=== PATIENT | male | born 1965 | race Caucasian/White ===

== ENCOUNTER 2024-01-18 18:09 | Inpatient (IN) | payer OTHER, SELFPAY ==
[2024-01-18] VITALS (9 sets, daily range): BP systolic 140–169; BP diastolic 94–107; BMI 26.9; BMI 27.6
[2024-01-18 15:16] LABS: % Basophils 1.1 % (0-2); % Eosinophils 7.1 % (0-6); % Immature Granulocytes 0.2 % (0-0.5); % Lymphocytes 38.7 % (20.5-51.1); % Monocytes 7.7 % (1.7-9.3); % Neutrophils 45.2 % (42.2-75.2); Absolute Basophils 0.1 10^3/uL (0-0.2); Absolute Eosinophils 0.5 10^3/uL (0-0.7); Absolute Lymphocytes 2.5 10^3/uL (1.2-3.4); Absolute Monocytes 0.5 10^3/uL (0.1-0.6); Absolute Neutrophils 2.9 10^3/uL (1.4-6.5); Hematocrit 42.8 % (39.0-52.0); Hemoglobin 15.2 g/dL (13.0-18.0); Mean Corp Hgb Conc. 35.5 g/dL (33.0-37.0); Mean Corpuscular Hgb 31.9 pg (27.0-31.0); Mean Corpuscular Volume 89.9 fL (80.0-94.0); Mean Platelet Volume 9.1 fL (7.4-10.4); Nucleated Red Blood Cells % 0 % (-); Platelet Count 211 10^3/uL (130-400); Red Blood Cell Count 4.76 10^6/uL (4.70-6.10); Red Cell Dist. Width 11.9 % (11.5-14.5); White Blood Cell Count 6.5 10^3/uL (4.8-10.8)
[2024-01-18 15:32] LABS: ALT (SGPT) 30 U/L (0-50); AST (SGOT) 30 U/L (17-59); Albumin 4.6 g/dl (3.5-5.0); Alkaline Phosphatase 53 U/L (38-126); Blood Urea Nitrogen 13 mg/dl (9-20); Calcium 9.5 mg/dl (8.4-10.2); Carbon Dioxide 27 mmol/L (22-30); Chloride 102 mmol/L (98-107); Estimated Creatinine Clearance 97 ml/min; Glucose 87 mg/dl (70-99); Potassium 3.9 mmol/L (3.5-5.1); Sodium 137 mmol/L (135-145); Total Bilirubin 0.7 mg/dl (0.2-1.3); Total Protein 7.3 g/dl (6.3-8.2); eGFR > 60.00
[2024-01-18 15:45] LABS: Troponin I 0.139 ng/ml
--- NOTE | 2024-01-18 16:10 | ED.GENMED ---
History of Present Illness
General
Chief Complaint: Chest Pain
Source: patient
Time Seen by Provider: 01/18/24 15:52
Travel History
Have you had any contact with someone who has COVID-19?: No
Do you have any symptoms of coronavirus? Fever > 100 degrees, chills, cough, shortness of breath, sore throat, loss of taste or smell, muscle aches, or headache?: No
History of Present Illness
History of Present Illness:
58-year-old male with history of aortic stenosis presents complaining of chest pressure that he experiences when he exerts himself. He has been experiencing this chest pressure when he walks his 2 mile walk in the morning. When he stops walking
the pressure goes away. The pain does not radiate to the neck arms or back. He feels slightly short of breath. No nausea or diaphoresis. No leg swelling or calf pain. No other complaints at this time
Phy Exam
Physical Exam
Physical Exam:
General: Well-appearing male no acute respiratory distress
HEENT: Normocephalic atraumatic
Heart: Regular rate and rhythm mild holosystolic murmur
Lungs: Clear no wheeze or rales
Abdomen soft nontender nondistended no guarding or rebound
Extremities: No cyanosis
Scores
Heart Score for Chest Pain Patients
STEMI patient?: No
History: Moderately Suspicious
ECG: Normal
Age: >45 - <65 years
Risk Factors: No Risk Factors
Troponin: >1 - <3 x Normal Limit
Heart Score for Chest Pain Patients: 3
Heart Score Risk: 2.5% MACE over next 6 weeks
Course
Orders/Labs/Results
Orders:
Orders
01/18/24 15:01
Electrocardiogram (*1) Urgent
Reason for Study: Chest Pain
EKG- Treatment ONCE
01/18/24 15:09
Complete Blood Count/With Diff Urgent
Comprehensive Metabolic Panel Urgent
Troponin I Urgent
01/18/24 16:09
Aspirin 325 mg PO NOW STA
Abnormal Lab Results
01/18/24
15:09
MCH 31.9 H pg
(27.0-31.0)
Eosinophils % 7.1 H %
(0-6)
Troponin I 0.139 H* ng/ml
01/18/24 15:09
01/18/24 15:09
Vital Signs
Initial and Last Documented VS:
Initial Vital Signs
Temp Pulse Resp BP Pulse Ox
97.8 F 71 16 159/101 98
01/18/24 14:58 01/18/24 14:58 01/18/24 14:58 01/18/24 14:58 01/18/24 14:58
Last Documented Vital Signs
Temp Pulse Resp BP Pulse Ox
97.8 F 74 18 156/98 99
01/18/24 14:58 01/18/24 16:00 01/18/24 16:00 01/18/24 15:51 01/18/24 16:00
MDM/Problems Addressed
Differential Diagnosis Includes:
Exertional chest pressure now resolved. No pain currently. Consider ACS. Patient did travel to [place] 1 week ago however symptoms started before that week. Do not suspect PE as pain is gone currently and there is no pleuritic component. No
signs to suggest DVT otherwise. EKG shows sinus bradycardia but no ischemic changes. Troponin is elevated at 0.139. Concern for possible anginal symptoms. I reviewed prior hospital records which demonstrated an echocardiogram as done in
May of last year which showed moderate aortic stenosis.
Aspirin ordered. Discussed with cardiology
*Critical Care Note
Total Time (30-74mins, 75-104mins- exclusive of procedures): Not Applicable
Update Note
Update Note:
Patient remained chest pain-free here. Evaluated by cardiology. Will admit to hospital for further evaluation
ED Attending Note
-
Portions of this chart may have been created with voice recognition software.� Occasional wrong word or��sound alike� substitutions may have occurred due to the inherent limitations of voice recognition software.
Discharge Plan
Departure
Patient Disposition: Admit
Date of Disposition: 01/18/24
Time of Disposition: 17:48
Admit to: Telemetry
Presentation/result/management discussed w/ accepting MD/DO: Hospitalist
Discharge Problem:
Chest pain
Prescriptions:
No Action
pantoprazole [Protonix] 40 mg Tablet,Delayed Release (Dr/Ec)
40 mg PO DAILY
Referrals:
Gage Cartagena CRNP [Family Provider] -
Interventions
Interventions:
*Risk Screen - Suicide Last Done: 01/18/24 14:58
*Neglect/Abuse Screening Last Done: 01/18/24 14:58
ED- Fall Risk Assessment Last Done: 01/18/24 14:58
*ED COVID-19 Vaccine History Last Done: 01/18/24 14:58
Discharge Date and Time
Print Language: [id number]
[2024-01-18] MEDS: ASPIRIN 325 MG PO (16:28)
--- NOTE | 2024-01-18 16:45 | CON.CAR ---
Addendum entered and electronically signed by Anai Ocampo MD 01/18/24 17:53:
I saw and examined the patient.
The Aerial Advertiser's note was reviewed and I agree with the note.
Comment: Ervin is a 58-year-old gentleman with past medical history of GERD, hemochromatosis with periodic phlebotomies, most recent iron studies per patient have been within normal limits, moderate bicuspid aortic stenosis who reports a 2-month
history of exertional chest discomfort and shortness of breath found to have concern for possible NSTEMI. Initial troponin level is mildly elevated at 0.139. ECG with sinus bradycardia without signs of acute ischemia. No chest discomfort at rest.
Outpatient cardiology workup includes an echocardiogram from June 05, 2024 with LVEF of 60 to 65%, bicuspid aortic valve with restricted leaflet motion and moderate aortic stenosis with peak and mean transaortic gradients of 44 and 26 mmHg,
aortic valve area of 1.1 cm� and mild aortic regurgitation. ECG only treadmill stress test in May 2023 was negative for ischemia after patient walked for 12 minutes and achieved 13 METS and 101% of maximum predicted heart rate. He denies any
presyncopal or syncopal episodes. No lower extremity edema, orthopnea or PND. He works in medical supplies. Family history of his mom needing aortic valve replacement but without history of premature coronary artery disease.
Vital signs and lab work reviewed. On exam patient is a well-appearing gentleman in no acute distress, no JVD, normal carotid upstrokes, no carotid bruit, lungs are clear to auscultation bilaterally, normal S1, soft S2, mid-to-late peaking systolic
ejection murmur 3 out of 6, crescendo decrescendo. Abdomen is soft, nontender with active bowel sounds and warm extremities without significant edema.
Recommendations:
1. Monitor on telemetry through the weekend. Trend troponins and EKGs.
2. No evidence of decompensated heart failure on exam.
3. Treat for presumed NSTEMI with daily baby aspirin, IV heparin drip, high intensity statin.
4. Plan for left heart catheterization and repeat echocardiogram on Sunday.
Discussed with patient who is agreeable.
Anai Ocampo MD, [facility], [facility]
Original Note:
Consultation
Consultation Request
Date/Time Consultation Performed: 01/18/24
Requesting Provider: Umberto Mcmanus PA-C
Performing Provider: Marie Altamirano PA-C for Dr. Ocampo
Reason for Consultation: CP, elevated troponin
Medical History
-
Chief Complaint: CP
History of Present Illness:
Patient is a 58-year-old male with past medical history of moderate aortic stenosis secondary to bicuspid valve, hemochromatosis with periodic phlebotomy followed by ANSELMO Cooley, who presents to [facility] emergency room with complaints
of chest pressure. He reports he has been experiencing this with exercise over the last several months. He states he normally walks about 2 miles every morning, and has been experiencing the discomfort with this. It is mostly central in location,
however does radiate up to his throat and at times into his bilateral arms. He also reports shortness of breath associated with this. No presyncope/syncopal episodes. He has never had chest pressure with rest. He denies worsening over the last
several months, however is consistent. Denies recent medication changes. He is not on aspirin as an outpatient. His last blood work through hematology was the end of November 2023 and his iron level was fine and he did not require phlebotomy at that
time. Troponin 0.139. He is currently pain-free. EKG sinus bradycardia. Cardiology consulted for evaluation
PMH:
Moderate with bicuspid valve
Hemochromatosis with periodic phlebotomy
GERD
Past Medical History
Past Medical History: Other (in HPI)
Social History
Tobacco: Non-Smoker
Personal:
Living: With Family
Employment: Employed
Family History
Family History: Diabetes and Hypertension
Allergies / Home Medications
Allergy/AdvReac Type Severity Reaction Status Date / Time
Tetracyclines Allergy Swelling Verified 01/18/24 14:57
�Medication �Instructions �Recorded �Confirmed �Type
pantoprazole 40 mg tablet,delayed 40 mg PO DAILY 01/18/24 01/18/24 History
release (Protonix)
Review of Systems
-
History Source: Patient
All other systems: Negative unless noted
Physical Exam
Vital Signs
Temp Pulse Resp BP Pulse Ox
97.8 F 74 18 156/98 99
01/18/24 14:58 01/18/24 16:00 01/18/24 16:00 01/18/24 15:51 01/18/24 16:00
Lab Results
01/18/24 15:09
01/18/24 15:09
Troponin I 0.139 ng/ml H* 01/18/24 15:09
Physical Exam
General: No Apparent Distress and Comfortable
HEENT: Normocephalic, Anicteric and Moist Mucous Membranes
Respiratory: Clear and Non Labored Respirations
Cardiac: S1/S2, Regular Rhythm and Murmur
GI: Soft, Non Tender, Non Distended and Normal Bowel Sounds
Musculoskeletal: No Clubbing, No Cyanosis and Edema (trace of B/L LE)
Skin: Warm and Dry
Neuro: AO x 3
Impression / Plan
-
Primary .Net Architect: Dr. Wolf
Assessment:
Presentation with exertional chest discomfort
Elevated troponin
Moderate with bicuspid valve
Hemochromatosis with periodic phlebotomy
GERD
ECHO 06/05/23: EF 60 to 65%, mild concentric LVH, possible bicuspid aortic valve with restricted leaflet motion, moderate AAS, peak/mean gradients 44/26 mmHg, HARVINDER 1.1 cm�, mild AR
Treadmill stress test 05/2023: Negative for ischemia at 12 METS
Plan:
-Patient presents with exertional chest discomfort over the last several months. Troponin in ER elevated at 0.139. EKG sinus bradycardia without acute ischemic changes. He does have known moderate in addition.
-does not appear to be volume overloaded
-Will need cardiac catheterization, timing to be determined. procedure discussed with patient
-324 mg aspirin given in ER. Would start on 81 mg daily in a.m.
-Currently chest pain-free. Would consider for IV heparin
-Trend troponin to peak
-Check CVE
-Check echo to reevaluate
-Consider addition of beta-brandon, but avoid hypotension
-hgb stable at 15.2. known hemochromatosis requiring periodic phlebotomy
-d/w ER PA
Data Reviewed
-
EKG: Tracing Personally Visualized and interpreted
Medical Tests (Nuc Med, Echo etc): Report Reviewed by me
Labs: Labs Reviewed by me
Old Records: Reviewed
--- NOTE | 2024-01-18 18:14 | HPS.HSE ---
Family Physician
-
Family Physician: PRISCILA Herrera
Chief Complaint
-
exertional chest pain
History of Present Illness
58-year-old man with a history of bicuspid aortic valve has been lately having exertional chest pain over the last 2 months. Progressively worse so he presented to the ER.
Central in nature and radiates to the arms and the neck. Never had rest chest pain. He also started noticed some exertional shortness of breath. No syncope or lightheadedness. No palpitations.
He had an echocardiogram in 2022 and also a stress test in 2022. 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
Non-smoker. No history of diabetes or hyperlipidemia. Not on any cardiac medication. No premature cardiac events or in the family. Mother also had a bicuspid valve and was operated in her 80s.
History of hemochromatosis gets regular phlebotomies in the last ferritin levels within the normal limit a month ago.
Medical History
Past Medical History
Past Medical History: Reports Other ( Bicuspid aortic valve, hemochromatosis)
Past Surgical History: Reports None
Social History
Tobacco: Non-smoker
Drug: None
Living: With Family
Family History
Family History: Other ( mother had bicuspid valve)
Allergies / Home Medications
Allergies reflects when Allergies were last updated in [email or web address].
Home Medications with original date entered in [email or web address]
Allergy/Medication List:
Allergies
Allergy/AdvReac Type Severity Reaction Status Date / Time
Tetracyclines Allergy Swelling Verified 01/18/24 14:57
Home Medications
pantoprazole 40 mg tablet,delayed release (Protonix) 40 mg PO DAILY 01/18/24
Review of Systems
-
A 12 point ROS was completed and negative except as noted: Yes
Physical Exam
Vital Signs
Vital Signs
Temp Pulse Resp BP Pulse Ox
97.8 F 74 18 156/98 99
01/18/24 14:58 01/18/24 16:00 01/18/24 16:00 01/18/24 15:51 01/18/24 16:00
Physical Exam
General: No Apparent Distress
HEENT: Moist mucous membranes
Respiratory: Clear
Cardiac: S1/S2, Regular Rhythm and Murmur; No JVD
Musculoskeletal: No No Edema
Neuro: AO x 3
Psych: Calm
Laboratory Results
-
01/18/24 15:09
01/18/24 15:09
Laboratory Results
Total Bilirubin 0.7 mg/dl (0.2-1.3) 01/18/24 15:09
AST 30 U/L (17-59) 01/18/24 15:09
ALT 30 U/L (0-50) 01/18/24 15:09
Alkaline Phosphatase 53 U/L (38-126) 01/18/24 15:09
Troponin I 0.139 ng/ml H* 01/18/24 15:09
Data Reviewed
-
Medical Tests (Nuc Med, Echo, EKG etc): Image Personally Visualized and interpreted (ekg)
Lab Data: Labs Reviewed by me
Impression/Plan
-
exertional chest pain with indeterminate troponin elevation. No chest pain at rest. Concerning for non-ST elevation ID. Patient known to have bicuspid valve but no current evidence of heart failure. No syncope. EKG shows no acute ST-T changes.
Patient will be admitted to telemetry. Will start on aspirin, IV heparin and Lipitor. Hold on beta-blockers due to bradycardia. Appreciate cardiology input. Plan for echo and cardiac catheterization noted. Trend troponins.
Bicuspid aortic valve-no evidence of heart failure or syncope.
Hemochromatosis on Regular phlebotomies-apparently ferritin within the normal limit recently.
[2024-01-18] MEDS: HEPARIN 4000 UNITS IV (18:15)
[2024-01-18] MEDS: HEPARIN 25000 UNITS/250 ML IV (18:30)
[2024-01-18 18:31] LABS: APTT 28.2 Sec (23.4-35.0)
[2024-01-18 23:56] LABS: Troponin I 0.107 ng/ml
[2024-01-19] VITALS (7 sets, daily range): BP systolic 133–176; BP diastolic 91–110
[2024-01-19 01:52] LABS: APTT 102.6 Sec (23.4-35.0)
[2024-01-19 07:56] LABS: APTT 99.6 Sec (23.4-35.0)
[2024-01-19 08:08] LABS: Troponin I 0.093 ng/ml
[2024-01-19 08:47] LABS: HDL Cholesterol 63 mg/dl; LDL Cholesterol, Calculated 126 mg/dl; Total Cholesterol 202 mg/dl (50-199); Triglyceride 67 mg/dl (10-149); Very Low Density Lipoprotein 13 mg/dl (0-30)
[2024-01-19] MEDS: PROTONIX 40 MG PO (09:22)
[2024-01-19] MEDS: ASPIR LOW (ENTERIC COATED) 81 MG PO (09:22)
--- NOTE | 2024-01-19 09:36 | W.PN.CARDCBS ---
Today's Communication / Plan
-
Treat for presumed NSTEMI with daily baby aspirin, IV heparin drip, high intensity statin.
Plan for left heart catheterization and repeat echocardiogram on Sunday.
Hypertension, will start by adding low-dose beta-brandon which can also act as an antianginal. Toprol XL 12.5 mg daily.
Impression / Plan
-
Primary Customs Manager: Dr. Wolf
Assessment:
Presentation with exertional chest discomfort
Elevated troponin
Moderate with bicuspid valve
Hemochromatosis with periodic phlebotomy
GERD
ECHO 06/05/23: EF 60 to 65%, mild concentric LVH, possible bicuspid aortic valve with restricted leaflet motion, moderate AAS, peak/mean gradients 44/26 mmHg, HARVINDER 1.1 cm�, mild AR
Treadmill stress test 05/2023: Negative for ischemia at 12 METS
Plan:
-Patient presents with symptoms of unstable angina with exertional chest discomfort over the last several months. Troponin in ER elevated at 0.139 (peak). EKG sinus bradycardia without acute ischemic changes. He does have known moderate in
addition. Currently chest pain-free.
Treat for presumed NSTEMI with daily baby aspirin, IV heparin drip, high intensity statin.
Plan for left heart catheterization and repeat echocardiogram on Sunday.
-Hypertension
Will start by adding low-dose beta-brandon which can also act as an antianginal. Toprol XL 12.5 mg daily.
-hgb stable at 15.2. known hemochromatosis requiring periodic phlebotomy
Total time, 50 minutes.
Progress Note - Customs Manager
Subjective
Date of Service: January 19, 2024
Denies any further chest discomfort. No shortness of breath. No back pain.
Objective
Labs:
01/18/24 15:09
01/18/24 15:09
Labs
Hgb 15.2 g/dL (13.0-18.0) 01/18/24 15:09
Hct 42.8 % (39.0-52.0) 01/18/24 15:09
Plt Count 211 10^3/uL (130-400) 01/18/24 15:09
APTT 99.6 Sec (23.4-35.0) H 01/19/24 07:32
Sodium 137 mmol/L (135-145) 01/18/24 15:09
Potassium 3.9 mmol/L (3.5-5.1) 01/18/24 15:09
BUN 13 mg/dl (9-20) 01/18/24 15:09
Creatinine 1.0 mg/dL (0.7-1.3) 01/18/24 15:09
Glucose 87 mg/dl (70-99) 01/18/24 15:09
Troponins
01/18/24 01/18/24 01/19/24
15:09 23:15 07:32
Troponin I 0.139 H* 0.107 H* 0.093 H*
Vital Signs and I&O:
Vital Signs
Temp Pulse Resp BP Pulse Ox
97.7 F 66 18 149/91 97
01/19/24 07:00 01/19/24 07:00 01/19/24 07:00 01/19/24 07:00 01/19/24 07:00
Vital Signs
Temp Pulse Resp BP Pulse Ox
97.7 F 66 18 149/91 97
01/19/24 07:00 01/19/24 07:00 01/19/24 07:00 01/19/24 07:00 01/19/24 07:00
Intake & Output
01/17/24 01/18/24 01/19/24 01/20/24
06:59 06:59 06:59 06:59
Intake Total 240 / 240
Balance 240 / 240
Physical Exam
Physical Exam
Well-appearing, no acute distress sitting up in bed smiling.
Regular rate and rhythm, normal S1 and S2, no S3 no S4 is grade 1/6 apical holosystolic murmur no rubs. PMI is normally placed.
Lungs are clear to auscultation bilaterally without wheezes rales or rhonchi
Abdomen soft nontender nondistended with normoactive bowel sounds.
Extremities show no clubbing cyanosis or edema.
Neurologic exam is grossly nonfocal.
[2024-01-19 09:54] LABS: Magnesium 2.1 mg/dl (1.6-2.3)
[2024-01-19] MEDS: HEPARIN 25000 UNITS/250 ML IV (11:13)
[2024-01-19] MEDS: TOPROL XL 12.5 MG PO (11:32)
--- NOTE | 2024-01-19 13:38 | CM ---
Reviewed chart, met with patient to obtain information for assessment. Patient stated that he lives with his spouse and children in a two story home with two steps to enter.
He described himself as independent with his ADLs, self care, bathing, dressing, toileting and ambulates without use of an assistive device. 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 He drives and can get to all of his
appointments and does all his own shopping.
He has no DME.
He has never had VN.
He has never been to a SNF.
Patient has a prescription plan and uses [facility] in [place] for all of his medications.
His PCP is Gage Moreau.
Patient feels that physically he is at his baseline and does not anticipate any needs at time of discharge.
Plan: Case management will continue to follow and assist with discharge planning. Patient would like to go home when he is medically cleared.
--- NOTE | 2024-01-19 14:34 | W.PN.HOSP.TC ---
Today's Communication/Plan
-
CW current tx
Assessment / Plan
Assessment / Plan
Exertional chest pain with indeterminate troponin elevation. No chest pain at rest. Concerning for non-ST elevation MD. Patient known to have bicuspid valve but no current evidence of heart failure. No syncope. EKG shows no acute ST-T changes.
admitted to telemetry. CW on aspirin, IV heparin and Lipitor. BB started by cards today -follow HR. Appreciate cardiology input. Plan for echo and cardiac catheterization noted. Trend troponins.
Bicuspid aortic valve-no evidence of heart failure or syncope.
Hemochromatosis on Regular phlebotomies-apparently ferritin within the normal limit recently.
Anticipated Discharge: > 48 hours
Subjective/Interval History
-
Date of Service: January 19, 2024
No CP or SOB at rest.
Objective Data
-
Labs:
Laboratory Results
01/19/24 01/19/24
07:32 14:00
APTT 99.6 H Pending
Vital Signs:
Vital Signs
Temp Pulse Resp BP Pulse Ox
98.4 F 70 16 133/95 97
01/19/24 11:00 01/19/24 11:00 01/19/24 11:00 01/19/24 11:00 01/19/24 11:00
I&O
01/18/24 01/19/24 01/20/24
06:59 06:59 06:59
Intake Total 240 / 240
Balance 240 / 240
Review of Systems
-
Constitutional: Denies Fever
EENT: Denies Sore Throat
Respiratory: Denies Cough
Cardiac: Denies Palpitations
Abdomen/GI: Denies Nausea or Vomiting
Neuro: Denies Dizzy
Physical Exam
-
General: No Apparent Distress
HEENT: Moist Mucous Membranes
Respiratory: Clear to Auscultation
Cardiac: Regular Rhythm, S1/S2 and Murmur
GI: Soft
Neuro: AO x 3
Data Reviewed
-
Labs: Labs Reviewed by me
[2024-01-19 15:08] LABS: APTT 87.7 Sec (23.4-35.0)
[2024-01-19 15:19] LABS: Troponin I 0.075 ng/ml
[2024-01-19] MEDS: LIPITOR 40 MG PO (18:24)
--- NOTE | 2024-01-19 18:29 | PTCARENOTE ---
Pt transferred to IVU via wheelchair by staff. Report given to IVU nurse. Continues on heparin drip.
--- NOTE | 2024-01-19 18:40 | PTCARENOTE ---
Rec'd report from TYSON Almeida on 3W, then rec'd pt AAOx3 w/no c/o CP or SOB at this time. Pt ambulated from wheelchair to bed on his own. Heparin IV drip infusing as ordered via patent L AC IV line. Pt oriented to room. Call solomon within reach. Plan of
care ongoing.
[2024-01-19] MEDS: ZESTRIL 10 MG PO (20:30)
[2024-01-19] MEDS: TOPROL XL 25 MG PO (20:30)
--- NOTE | 2024-01-20 00:09 | PTCARENOTE ---
Pt rec'd at change of shift with no c/o cp or sob. IV Heparin continued. Sinus on telemetry. CAD education given to pt both verbally and via CAD education book. B/P elevated with diastolic over 100. Dr Ceferino Galan made aware; orders obtained
with pt receiving Toprol 25 and lisinopril 10 mg. B/P at HS improved to 136/94.
[2024-01-20 03:24] VITALS: BP 123/74
[2024-01-20 03:37] LABS: Hematocrit 43.5 % (39.0-52.0); Hemoglobin 15.6 g/dL (13.0-18.0); Mean Corp Hgb Conc. 35.9 g/dL (33.0-37.0); Mean Corpuscular Hgb 33.1 pg (27.0-31.0); Mean Corpuscular Volume 92.2 fL (80.0-94.0); Mean Platelet Volume 9.5 fL (7.4-10.4); Platelet Count 193 10^3/uL (130-400); Red Blood Cell Count 4.72 10^6/uL (4.70-6.10); Red Cell Dist. Width 11.8 % (11.5-14.5); White Blood Cell Count 7.3 10^3/uL (4.8-10.8)
[2024-01-20] MEDS: HEPARIN 25000 UNITS/250 ML IV (03:48)
[2024-01-20 03:51] LABS: APTT 104.5 Sec (23.4-35.0)
--- NOTE | 2024-01-20 05:27 | PTCARENOTE ---
Pt's b/p improved to 123/74. no c/o cp or sob. Sinus on telemetry
[2024-01-20 07:39] VITALS: BP 112/82
[2024-01-20 07:41] VITALS: BP 112/82
[2024-01-20] MEDS: ASPIR LOW (ENTERIC COATED) 81 MG PO (08:57)
[2024-01-20] MEDS: PROTONIX 40 MG PO (08:57)
[2024-01-20] MEDS: TOPROL XL 12.5 MG PO (08:57)
--- NOTE | 2024-01-20 09:41 | W.PN.HOSP.TC ---
Today's Communication/Plan
-
Continue current treatment including IV heparin
For cardiac catheterization/Echo tomorrow.
Assessment / Plan
Assessment / Plan
Exertional chest pain with indeterminate troponin elevation. No chest pain at rest. Concerning for non-ST elevation [place]. Patient known to have bicuspid valve but no current evidence of heart failure. No syncope. EKG shows no acute ST-T changes.
CW Tele. CW on aspirin, IV heparin and Lipitor. cw BB. Appreciate cardiology input. Plan for echo and cardiac catheterization noted.
Bicuspid aortic valve-no evidence of heart failure or syncope.
Hemochromatosis on Regular phlebotomies-apparently ferritin within the normal limit recently.
Anticipated Discharge: 24 - 48 hours
Subjective/Interval History
-
Date of Service: January 20, 2024
no chest pain or shortness of breath today.
Objective Data
-
Labs:
Laboratory Results
01/20/24
03:30
WBC 7.3
Hgb 15.6
Hct 43.5
Plt Count 193
APTT 104.5 H
Vital Signs:
Vital Signs
Temp Pulse Resp BP Pulse Ox
97.5 F 57 20 112/82 95
01/20/24 07:39 01/20/24 07:39 01/20/24 07:39 01/20/24 07:39 01/20/24 07:39
I&O
01/19/24 01/20/24 01/21/24
06:59 06:59 06:59
Intake Total 240 / 240 1080 / 1080
Balance 240 / 240 1080 / 1080
Review of Systems
-
Constitutional: Denies Fever
EENT: Denies Sore Throat
Respiratory: Denies Cough
Abdomen/GI: Denies Abdominal Pain, Nausea or Vomiting
Neuro: Denies Dizzy
Physical Exam
-
General: No Apparent Distress
HEENT: Moist Mucous Membranes
Respiratory: Clear to Auscultation
Cardiac: Regular Rhythm and S1/S2
Neuro: AO x 3
Data Reviewed
-
Labs: Labs Reviewed by me
[2024-01-20 11:43] VITALS: BP 121/82
--- NOTE | 2024-01-20 12:36 | W.PN.CARDCBS ---
Today's Communication / Plan
-
For left heart cath tomorrow
Impression / Plan
-
Primary Grease Maker: Dr. Wolf
Assessment:
Presentation with exertional chest discomfort
Elevated troponin
Moderate with bicuspid valve
Hemochromatosis with periodic phlebotomy
GERD
ECHO 06/05/23: EF 60 to 65%, mild concentric LVH, possible bicuspid aortic valve with restricted leaflet motion, moderate AAS, peak/mean gradients 44/26 mmHg, HARVINDER 1.1 cm�, mild AR
Treadmill stress test 05/2023: Negative for ischemia at 12 METS
Plan:
-Patient presents with symptoms of unstable angina with exertional chest discomfort over the last several months. Troponin in ER elevated at 0.139 (peak). EKG sinus bradycardia without acute ischemic changes. He does have known moderate in
addition.
Currently chest pain-free, troponin has peaked. Will stop IV heparin, continue aspirin and high intensity statin. Continue recently added beta-brandon
Plan for left heart catheterization and repeat echocardiogram on Sunday.
-Hypertension
Improved, I did add Toprol XL 12.5 mg daily on 01/19/2024.
-hgb stable at 15.6. known hemochromatosis requiring periodic phlebotomy
Progress Note - Grease Maker
Subjective
Date of Service: January 20, 2024
No chest pain shortness of breath palpitations or dizziness
Objective
Labs:
01/20/24 03:30
01/18/24 15:09
Labs
Hgb 15.6 g/dL (13.0-18.0) 01/20/24 03:30
Hct 43.5 % (39.0-52.0) 01/20/24 03:30
Plt Count 193 10^3/uL (130-400) 01/20/24 03:30
APTT 104.5 Sec (23.4-35.0) H 01/20/24 03:30
Sodium 137 mmol/L (135-145) 01/18/24 15:09
Potassium 3.9 mmol/L (3.5-5.1) 01/18/24 15:09
BUN 13 mg/dl (9-20) 01/18/24 15:09
Creatinine 1.0 mg/dL (0.7-1.3) 01/18/24 15:09
Glucose 87 mg/dl (70-99) 01/18/24 15:09
Troponins
01/18/24 01/18/24 01/19/24
15:09 23:15 07:32
Troponin I 0.139 H* 0.107 H* 0.093 H*
01/19/24
14:45
Troponin I 0.075 H*
Vital Signs and I&O:
Vital Signs
Temp Pulse Resp BP Pulse Ox
97.5 F 63 20 121/82 98
01/20/24 11:43 01/20/24 11:43 01/20/24 07:39 01/20/24 11:43 01/20/24 11:43
Vital Signs
Temp Pulse Resp BP Pulse Ox
97.5 F 63 20 121/82 98
01/20/24 11:43 01/20/24 11:43 01/20/24 07:39 01/20/24 11:43 01/20/24 11:43
Intake & Output
01/18/24 01/19/24 01/20/24 01/21/24
06:59 06:59 06:59 06:59
Intake Total 240 / 240 1080 / 1080
Balance 240 / 240 1080 / 1080
Physical Exam
Physical Exam
Well-appearing, no acute distress sitting up in bed smiling.
Regular rate and rhythm, normal S1 and S2, no S3 no S4 is grade 1/6 apical holosystolic murmur no rubs. PMI is normally placed.
Lungs are clear to auscultation bilaterally without wheezes rales or rhonchi
Abdomen soft nontender nondistended with normoactive bowel sounds.
Extremities show no clubbing cyanosis or edema.
Neurologic exam is grossly nonfocal.
[2024-01-20 15:33] VITALS: BP 122/80
[2024-01-20] MEDS: LIPITOR 40 MG PO (17:28)
--- NOTE | 2024-01-20 20:15 | PTCARENOTE ---
aaox3. nsr. vss. updated abouth cath tomorrow. aware npo at midnight. will monitor.
[2024-01-20 20:42] VITALS: BP 120/84
[2024-01-21] VITALS (8 sets, daily range): BP systolic 112–148; BP diastolic 75–94
--- NOTE | 2024-01-21 08:19 | PTCARENOTE ---
Rec'd pt AAOx3 w/no CP or SOB; Pt VS stable w/HR in the 50's-60's. Pt is SB/SR on telemetry monitoring. Pt getting ECHO prior to cardiac cath this AM-cotton program technician in w/pt at this time. Pt's Heparin drip is off as ordered. Plan of care ongoing.
[2024-01-21] MEDS: TOPROL XL 12.5 MG PO (09:02)
[2024-01-21] MEDS: PROTONIX 40 MG PO (09:02)
[2024-01-21] MEDS: ASPIR LOW (ENTERIC COATED) 81 MG PO (09:02)
--- NOTE | 2024-01-21 10:39 | PTCARENOTE ---
Report given to Gisell from the distillery laborer; pt transported in bed to distillery laborer. Pt continues w/no CP or SOB. L AC IV line patent for procedure. Plan of care ongoing.
--- NOTE | 2024-01-21 10:49 | W.PN.HOSP.TC ---
Today's Communication/Plan
-
Cardiac catheter
Cardiology recs
Assessment / Plan
Assessment / Plan
Exertional chest pain with indeterminate troponin elevation. No chest pain at rest. Concerning for non-ST elevation [place]. Patient known to have bicuspid valve but no current evidence of heart failure. No syncope. EKG shows no acute ST-T changes.
CW Tele. CW on aspirin, and Lipitor. cw BB. IV heparin stopped. Appreciate cardiology input. Echocardiogram EF of 60 to 65%. Mild concentric LVH. Right ventricle normal. Aortic valve thickened with restricted moderate aortic stenosis. Cannot
exclude a functionality of bicuspid aortic valve with fusion of the right and noncoronary cusp. Troponin down trended. Cardiac catheterization planned for today.
Bicuspid aortic valve-no evidence of heart failure or syncope.
Hemochromatosis on Regular phlebotomies-apparently ferritin within the normal limit recently.
DVT prophylaxis start Lovenox
Dispo pending cardiac cath and cardiology recs
Anticipated Discharge: Within 24 hours
Subjective/Interval History
-
Date of Service: January 21, 2024
Denies any chest pain
Objective Data
-
Labs:
Laboratory Results
01/21/24
05:00
APTT Cancelled
Vital Signs:
Vital Signs
Temp Pulse Resp BP Pulse Ox
97.6 F 56 18 117/86 97
01/21/24 07:00 01/21/24 08:15 01/21/24 07:00 01/21/24 06:50 01/21/24 07:00
I&O
01/20/24 01/21/24 01/22/24
06:59 06:59 06:59
Intake Total 1080 / 1080
Balance 1080 / 1080
Physical Exam
-
General: Well Developed and No Apparent Distress
HEENT: Normocephalic, Atraumatic and Moist Mucous Membranes
Respiratory: Clear to Auscultation
Cardiac: Regular Rhythm and S1/S2; Negative Murmur, Rub or Gallop
GI: Soft, Nontender, Nondistended and Normal Bowel Sounds; Negative Organomegaly
Rectal: Deferred by Provider
Musculoskeletal: No Clubbing, No Cyanosis and No Edema
Skin: Negative Rash
Neuro: Awake and Nonfocal/Grossly Intact
[2024-01-21 11:42] LABS: ACT-LR - POC 305 Seconds (116-155)
--- NOTE | 2024-01-21 12:35 | ITS.CL.CATH ---
Labor Arbitrator Hearing Office - Catheterization
Cardiac Catheterization
Procedure Report:
LEFT HEART CATH AND CORONARY INTERVENTION
Date of Procedure: January 21, 2024
Referring: Dr. Anai Ocampo
PROCEDURES:
1. Left heart catheterization with coronary and single-plane left ventriculography
2. Successful stenting of the mid LAD with a 2.25 x 23 mm Xience stent that was postdilated distally with a 2.25 mm noncompliant balloon and in the proximal to midportion of the stent with a 3.25 x 8 mm noncompliant balloon
INDICATION: This is a 58-year-old gentleman with a past medical history notable for a bicuspid aortic valve who presented to [facility] for evaluation of exertional chest tightness that has been there since November 2023. His symptoms have
worsened with exercise and he presented for further evaluation. He ruled in for a small non-ST segment elevation myocardial infarction with peak troponin on admission of 0.14 ng/mL. An echocardiogram performed this morning was notable for mean
aortic valve gradient of 30 mmHg and preserved left ventricular systolic function. He is now referred for coronary angiography
ACCESS: Right radial artery, 6 Danish sheath
HEMODYNAMICS (mmHg):
AO (s/d, m) : 130/82, 104
LV (s/d) : 152/9
LVEDP : 15
AORTIC VALVE:
Mean Gradient: 25 mmHg
CORONARY FINDINGS
Dominance: Right
LEFT MAIN: Normal
LEFT ANTERIOR DESCENDING: The LAD arises normally from the left main and runs in the anterior interventricular groove. A large first diagonal branch arises from the proximal third of the LAD and has luminal irregularities over its course. The mid
LAD beyond the diagonal branch has serial 30% stenoses. A small second diagonal branch arises from the mid LAD and there is a 95% stenosis in the mid LAD beyond the second diagonal branch. The mid to distal LAD tapers to a small caliber vessel.
CIRCUMFLEX: The circumflex is a medium caliber nondominant vessel. OM1 arises proximally from the circumflex and runs in a course typical of a ramus intermedius. The circumflex terminates in a small to medium caliber OM 2 that has a 40% mid
stenosis.
RIGHT CORONARY: The right coronary artery is a dominant vessel with diffuse 20-30% luminal irregularities noted throughout the vessel. The PDA is widely patent. The posterolateral branch is a medium caliber vessel that is widely patent
VENTRICULOGRAPHY: Left ventriculography was performed in an MOJICA projection. The digital single-plane left ventricular ejection fraction is estimated at 65% and no regional wall motion abnormalities are noted.
ANGIOPLASTY PROCEDURE DETAIL: Upon review of the diagnostic catheterization films the decision was made to proceed with percutaneous revascularization of the LAD as his aortic stenosis was not felt to be critical either by echo or by invasive
hemodynamic measurements. A 180 mg loading dose of ticagrelor was administered. Intravenous heparin was administered and the ACT was monitored throughout the procedure. The origin of the left main was cannulated with a 6 Danish XB 3.5 guiding
catheter and a long BMW guidewire was advanced to the distal portion of the second diagonal branch. A short BMW guidewire was advanced to the apical LAD. Balloon predilation was performed with a 2.0 x 15 mm trek balloon that was inflated to
nominal pressures. Predilation was followed by stenting of the mid LAD with a 2.25 x 23 mm Xience stent that was implanted at nominal pressures. The stent was postdilated between 12 and 14 tamiko with a 2.25 mm noncompliant balloon in its mid to
distal segments. The proximal to midportion of the stent was postdilated with a 3.25 mm noncompliant balloon that was inflated to 14 tamiko. The stenosis at the origin of the jailed second diagonal branch remained stable and JESSICA-3 flow was present
distally.
RADIATION SUMMARY: Fluoro Time (min): 19.4, Dose (mGy): 607, DAP (Gy.cm2) : 45.2
CONCLUSIONS
1. Non-ST segment elevation myocardial infarction related to high-grade mid LAD stenosis that was successfully stented with a 2.25 x 23 mm Xience stent that was postdilated with a 2.25 mm noncompliant balloon in the mid and distal portion and a
3.25 x 8 mm noncompliant balloon proximally.
2. Moderate aortic stenosis with mean aortic valve gradient of 25 mmHg
3. Preserved LV systolic function
RECOMMENDATIONS
1. Uninterrupted dual antiplatelet therapy for 12 months
2. High intensity lipid-lowering for goal LDL cholesterol closer to 55 mg/dL
3. Will need serial echocardiogram studies for follow-up of his aortic stenosis
Copy to: Dr. Pancho Wolf
--- NOTE | 2024-01-21 13:00 | PTCARENOTE ---
Rec'd report from Julieta; Pt back into at 1239. R radial site w/R band in place w/10cc of air. No signs or symptoms of bleeding or hematoma. VS stable. EKG completed. Pt w/call solomon within reach & no addtl needs at this time. Plan of care ongoing.
--- NOTE | 2024-01-21 13:02 | CM ---
priced mercedes with pts perscript plan- [facility] - his first month is $431.55 which includes his deductible- after that he pays 20% of the cost of the med which is apptox $110. he can use the $5 copay card. free 30 day and $5 copay card
placed in pts red dc folder.
[2024-01-21 14:47] LABS: ACT-LR - POC > 397 Seconds (116-155)
[2024-01-21] MEDS: LOVENOX 40 MG SC (17:48)
[2024-01-21] MEDS: LIPITOR 80 MG PO (17:48)
[2024-01-21] MEDS: TYLENOL 650 MG PO (17:48)
[2024-01-21] MEDS: BRILINTA 90 MG PO (19:30)
--- NOTE | 2024-01-22 00:32 | PTCARENOTE ---
Pt received at start of shift, HR SR. Pt OOB in chair. Reinforced purpose of brilinta and lipitor w/ pt, Pt states no questions. Pt c/o slight soreness in chest since cath, relieved by tylenol but still present. Pt denies any new/worsening/radiating
CP, SOB, or lightheadedness/dizziness. Informed to notify RN if any changes, call solomon within reach.
[2024-01-22 03:07] VITALS: BP 115/83
[2024-01-22 03:37] LABS: Hematocrit 43.3 % (39.0-52.0); Hemoglobin 15.4 g/dL (13.0-18.0); Mean Corp Hgb Conc. 35.6 g/dL (33.0-37.0); Mean Corpuscular Hgb 32.8 pg (27.0-31.0); Mean Corpuscular Volume 92.1 fL (80.0-94.0); Mean Platelet Volume 9.5 fL (7.4-10.4); Platelet Count 193 10^3/uL (130-400); Red Cell Dist. Width 11.8 % (11.5-14.5); White Blood Cell Count 6.8 10^3/uL (4.8-10.8)
[2024-01-22 04:19] LABS: Blood Urea Nitrogen 15 mg/dl (9-20); Calcium 9.4 mg/dl (8.4-10.2); Carbon Dioxide 23 mmol/L (22-30); Chloride 105 mmol/L (98-107); Estimated Creatinine Clearance 108 ml/min; Glucose 92 mg/dl (70-99); Potassium 4.2 mmol/L (3.5-5.1); Sodium 136 mmol/L (135-145); eGFR > 60.00
[2024-01-22 07:46] VITALS: BP 135/94
[2024-01-22 07:47] VITALS: BP 135/95
--- NOTE | 2024-01-22 08:00 | PTCARENOTE ---
Assumed care of pt from prev nsg shift. Pt AAOx3 w/no c/o CP or SOB. Pt w/R radial cath site w/dressing C/D/I w/no signs or symptoms of bleeding or hematoma. Pt's VS stable w/HR in the 60's & pt SR on telemetry monitoring. Pt anticipating going home
today. Addtl information re: cardiac cath procedure discussed w/pt & CAD book also discussed again. Pt w/no addtl needs at this time. Plan of care ongoing.
--- NOTE | 2024-01-22 09:00 | W.PN.CARDCBS ---
Addendum entered and electronically signed by Pancho Wolf MD 01/22/24 12:10:
I saw and examined the patient.
The MACHINE SILVER STRIPPER or PA's note was reviewed and I agree with the note.
Comment: General: Well developed, well nourished in NAD.
Neck: Supple, no JVD, HJR, carotids +2 B/L, no bruits bilaterally.
Heart: Non displaced PMI, RRR, 2/6 basal systolic murmur, No S3, S4, no rubs.
Lungs: Clear to auscultation bilaterally, no wheeze, rhonchi, rubs bilaterally,
normal expiratory phase.
Extremities: No clubbing, cyanosis or edema bilaterally.
Neuro: Grossly nonfocal, awake, alert and oriented x3.
Stable cardiology status for discharge. Reviewed with patient in detail and answered all questions. Recommend cardiac rehab. Follow-up has been arranged.
Original Note:
Today's Communication / Plan
-
s/p LAD PCI
continue asa, brilinta, lipitor, toprol
cardiac rehab
OP cardiac follow up arranged
will need continued OP monitoring for mod
Impression / Plan
-
Primary Assistant Teaching Professor: Dr. Wolf
Assessment:
Presentation with exertional chest discomfort
Elevated troponin
Moderate with bicuspid valve
Hemochromatosis with periodic phlebotomy
GERD
ECHO 06/05/23: EF 60 to 65%, mild concentric LVH, possible bicuspid aortic valve with restricted leaflet motion, moderate AAS, peak/mean gradients 44/26 mmHg, HARVINDER 1.1 cm�, mild AR
Treadmill stress test 05/2023: Negative for ischemia at 12 METS
ECHO 01/21/24: EF 60-65%, mild LVH, trace MR, mod with mean gradient 30mmHg, cannot exclude functionally bicuspid AV with fusion of R and noncoronary cusps, mild AI
Plan:
-he presented with [place] symptoms
-trop 0.139 and trended down
-known mod
-echo with preserved EF
-s/p cath 01/20 resulting in mid LAD PCI. reviewed results of cath with patient
-continue asa, brilinta
-continue statin
-continue toprol 12.5mg daily, added this admission
-hgb stable at 15.4. known hemochromatosis requiring periodic phlebotomy
-cardiac rehab
-will arrange OP cardiac follow up
-ok for DC to home today
-d/w hospitalist via TT. d/w nursing
Progress Note - Assistant Teaching Professor
Subjective
Date of Service: January 22, 2024
No issues overnight
Objective
Labs:
01/22/24 03:20
01/22/24 03:20
Labs
Hgb 15.4 g/dL (13.0-18.0) 01/22/24 03:20
Hct 43.3 % (39.0-52.0) 01/22/24 03:20
Plt Count 193 10^3/uL (130-400) 01/22/24 03:20
APTT Cancelled 01/21/24 05:00
Sodium 136 mmol/L (135-145) 01/22/24 03:20
Potassium 4.2 mmol/L (3.5-5.1) 01/22/24 03:20
BUN 15 mg/dl (9-20) 01/22/24 03:20
Creatinine 0.9 mg/dL (0.7-1.3) 01/22/24 03:20
Glucose 92 mg/dl (70-99) 01/22/24 03:20
Troponins
01/19/24
14:45
Troponin I 0.075 H*
Vital Signs and I&O:
Vital Signs
Temp Pulse Resp BP Pulse Ox
98 F 89 14 135/95 98
01/22/24 07:46 01/22/24 08:00 05/07/24 07:46 01/22/24 07:47 01/22/24 07:46
Vital Signs
Temp Pulse Resp BP Pulse Ox
98 F 89 14 135/95 98
01/22/24 07:46 01/22/24 08:00 01/22/24 07:46 01/22/24 07:47 01/22/24 07:46
Intake & Output
01/20/24 01/21/24 01/22/24 01/23/24
07:59 07:59 07:59 07:59
Intake Total 1080 / 1080 1460 / 1460
Balance 1080 / 1080 1460 / 1460
Physical Exam
Physical Exam
GEN: No distress, awake, alert, oriented x3
HEENT: supple, anicteric, mmm, eomi
LUNGS: CTA B/L, no wheezes/rales
CV: Reg, S1/S2, 2/6 syst LSB
ABD: soft, BS+, NT/ND
EXT: No cyanosis, clubbing, edema
NEURO: Gross non-focal
SKIN: Warm, pink, dry. No rash. R wrist site c/d/i
--- NOTE | 2024-01-22 09:13 | W.PN.HOSP.TC ---
Today's Communication/Plan
-
DC home
Assessment / Plan
Assessment / Plan
Exertional chest pain with indeterminate troponin elevation. No chest pain at rest. Concerning for non-ST elevation [place]. Patient known to have bicuspid valve but no current evidence of heart failure. No syncope. EKG shows no acute ST-T changes.
CW Tele. CW on aspirin, and Lipitor. cw BB. IV heparin stopped. Appreciate cardiology input. Echocardiogram EF of 60 to 65%. Mild concentric LVH. Right ventricle normal. Aortic valve thickened with restricted moderate aortic stenosis. Cannot
exclude a functionality of bicuspid aortic valve with fusion of the right and noncoronary cusp. Troponin down trended. Status post cardiac catheterization with KOURTNEY to LAD. Started on aspirin and Brilinta and high-dose statin
Bicuspid aortic valve-no evidence of heart failure or syncope.
Hemochromatosis on Regular phlebotomies-apparently ferritin within the normal limit recently.
DVT prophylaxis start Lovenox
Dispo DC home with outpatient cardiology follow-up
More than 30 minutes spent in discharge including
Final examination of the patient
Summarizing hospital stay
Instructions for continuing care to all relevant caregivers
Preparation of discharge records, prescriptions, and referral forms
Total time spent (in minutes): 45
Anticipated Discharge: Today
Subjective/Interval History
-
Date of Service: January 22, 2024
Walking around in room
Denies any chest pain or pressure.
Objective Data
-
Labs:
Laboratory Results
01/22/24
03:20
WBC 6.8
Hgb 15.4
Hct 43.3
Plt Count 193
Sodium 136
Potassium 4.2
Chloride 105
Carbon Dioxide 23
BUN 15
Creatinine 0.9
Glucose 92
Calcium 9.4
Vital Signs:
Vital Signs
Temp Pulse Resp BP Pulse Ox
98 F 89 14 135/95 98
01/22/24 07:46 01/22/24 08:00 01/22/24 07:46 01/22/24 07:47 01/22/24 07:46
I&O
01/21/24 01/22/24 01/23/24
06:59 06:59 06:59
Intake Total 1460 / 1460
Balance 1460 / 1460
Physical Exam
-
General: Well Developed and No Apparent Distress
HEENT: Normocephalic, Atraumatic and Moist Mucous Membranes
Cardiac: Regular Rhythm; Negative Murmur, Rub or Gallop
GI: Nondistended; Negative Organomegaly
Rectal: Deferred by Provider
Musculoskeletal: No Clubbing, No Cyanosis and No Edema
Skin: Negative Rash
Neuro: Awake, AO x 3 and Nonfocal/Grossly Intact
[2024-01-22] MEDS: ASPIR LOW (ENTERIC COATED) 81 MG PO (09:18)
[2024-01-22] MEDS: TOPROL XL 12.5 MG PO (09:18)
[2024-01-22] MEDS: PROTONIX 40 MG PO (09:18)
[2024-01-22] MEDS: BRILINTA 90 MG PO (09:20)
--- NOTE | 2024-01-22 10:44 | W.DCSUMMARY ---
Discharge Summary
Discharge Data
Date of Admission: 01/18/24
Date of Discharge: 01/22/24
-
Pending Results: No
Hospital Course
58-year-old with past medical history of hemochromatosis, bicuspid aortic valve is presenting with chest pain. Patient was found to elevated troponin. concern for NSTEMI. Patient underwent echocardiogram Echocardiogram EF of 60 to 65%. Mild
concentric LVH. Right ventricle normal. Aortic valve thickened with restricted moderate aortic stenosis. Cannot exclude a functionality of bicuspid aortic valve with fusion of the right and noncoronary cusp. Troponin down trended. Status post
cardiac catheterization with KOURTNEY to LAD. Started on aspirin and Brilinta and high-dose statin. Patient will be discharged home with outpatient cardiac rehab and cardiology follow-up.
Discharge Plan
-
Patient Disposition: Home (Routine Discharge)
Discharge Diagnosis/Procedures: NSTEMI status post Angioplasty and stent to Left Anterior Descending artery
Condition: Fair
Diet: Low Cholesterol
Driving Restrictions: No driving for 24 hours
Other Services: Cardiac Rehab
Stand Alone Forms: DC Instructions- Cath/EP Lab
Referrals:
Gage Cartagena CRNP [Family Provider] -
Ella Sweeney PA-C [Specified Professional Personl] - 02/14/24 9:00 am (Cardiology followup appointment)
Prescriptions:
New
aspirin 81 mg Tablet,Delayed Release (Dr/Ec)
81 mg PO DAILY 30 Days Qty: 30 0RF
Brilinta 90 mg Tablet
90 mg PO BID 30 Days Qty: 60 0RF
atorvastatin 80 mg Tablet
80 mg PO QPM 30 Days Qty: 30 0RF
metoprolol succinate 25 mg Tablet Extended Release 24 Hr
12.5 mg PO DAILY 30 Days Qty: 15 0RF
Continued
pantoprazole [Protonix] 40 mg Tablet,Delayed Release (Dr/Ec)
40 mg PO DAILY
Discharge Orders:
Discharge Patient (As Directed); Ordered 01/22/24
Ordered By: Willian Overton
Care Plan Goals
Care Plan Goals:
Problem: Readiness for enhanced knowledge related to diagnosis and treatment plan
Goal: Understand your diagnosis and treatment plan needs, including medications if applicable.
Instructions: Know your diagnosis, underlying causes and treatment plan options, including medications if applicable. Consult with your health care team to learn about your diagnosis and treatment plan, including medications if applicable.
Discharge Date and Time
Discharge Date/Time: 01/22/24 13:10
Print Language: POLISH
[2024-01-22 11:23] VITALS: BP 139/98; BP 150/96
--- NOTE | 2024-01-22 13:01 | PTCARENOTE ---
Pt's IV line & telemetry pack D/C'd; D/C instructions discussed w/pt. Pt transported out via wheelchair w/D/C to w/spouse providing transportation.
== END 2024-01-22 13:10 | disposition home or self-care (01) | DRG 322 ==
LOC: IVU 18:09
PROVIDERS: Emergency Medicine; Nurse Practitioner; Physician Assistant; ADMITTING PHYSICIAN Internal Medicine; ATTENDING PHYSICIAN Hospitalist; CONSULT PHYSICIAN Internal Medicine Interventional Cardiology; EMERGENCY PHYSICIAN Emergency Medicine; FAMILY PHYSICIAN Nurse Practitioner Family
PROC: 4A023N7 Measurement of Cardiac Sampling and Pressure, Left Heart, Percutaneous Approach (ICD-10-PCS; 2024-01-21)
PROC: B2151ZZ Fluoroscopy of Left Heart using Low Osmolar Contrast (ICD-10-PCS; 2024-01-21)
PROC: B2111ZZ Fluoroscopy of Multiple Coronary Arteries using Low Osmolar Contrast (ICD-10-PCS; 2024-01-21)
PROC: 027034Z Dilation of Coronary Artery, One Artery with Drug-eluting Intraluminal Device, Percutaneous Approach (ICD-10-PCS; 2024-01-21)
DX: I21.4 Non-ST elevation (NSTEMI) myocardial infarction (principal); Q23.1 Congenital insufficiency of aortic valve; E83.119 Hemochromatosis, unspecified; K21.9 Gastro-esophageal reflux disease without esophagitis; I10 Essential (primary) hypertension; I35.0 Nonrheumatic aortic (valve) stenosis
CPT/HCPCS: 80048; 80053; 80061; 83735; 84484; 85025; 85027; 85347; 85730; 93005; 93306; 93458; 96365; 99285; C1725; C1769; C1874; C1887; C9600; Q9967

== ENCOUNTER 2024-02-15 06:35 | Outpatient (RCR) | payer OTHER, SELFPAY | END 2024-02-15 23:59 | disposition home or self-care (01) | LOC: CRHB 06:35 | PROVIDERS: ATTENDING PHYSICIAN Internal Medicine Cardiovascular Disease; FAMILY PHYSICIAN Nurse Practitioner Family | DX: Z95.5 Presence of coronary angioplasty implant and graft (principal); I25.10 Atherosclerotic heart disease of native coronary artery without angina pectoris | CPT/HCPCS: 93797; 93798 ==

== ENCOUNTER 2024-03-14 06:42 | Outpatient (RCR) | payer OTHER, SELFPAY | END 2024-03-14 23:59 | disposition home or self-care (01) | LOC: CRHB 06:42 | PROVIDERS: ATTENDING PHYSICIAN Internal Medicine Cardiovascular Disease; FAMILY PHYSICIAN Nurse Practitioner Family | DX: I25.10 Atherosclerotic heart disease of native coronary artery without angina pectoris (principal); Z95.5 Presence of coronary angioplasty implant and graft; I25.2 Old myocardial infarction | CPT/HCPCS: 93797; 93798; G0422; G0423 ==

== ENCOUNTER 2024-03-24 06:42 | Outpatient (RCR) | payer OTHER, SELFPAY ==
[2024-03-25 11:29] LABS: HDL Cholesterol 55 mg/dl; LDL Cholesterol, Calculated 48 mg/dl; Total Cholesterol 112 mg/dl (50-199); Triglyceride 46 mg/dl (10-149); Very Low Density Lipoprotein 9 mg/dl (0-30)
== END 2024-03-24 23:59 | disposition home or self-care (01) ==
LOC: CRHB 06:42
PROVIDERS: ATTENDING PHYSICIAN Internal Medicine Cardiovascular Disease; FAMILY PHYSICIAN Nurse Practitioner Family
DX: I25.10 Atherosclerotic heart disease of native coronary artery without angina pectoris (principal); Z95.5 Presence of coronary angioplasty implant and graft
CPT/HCPCS: 36415; 80061; 93797; 93798; G0422; G0423

== ENCOUNTER → 2024-08-21 07:19 | Outpatient (REF) | payer OTHER, SELFPAY | LOC: RAD 07:19 | PROVIDERS: ATTENDING PHYSICIAN Nurse Practitioner Family | DX: Z00.00 Encounter for general adult medical examination without abnormal findings (principal); R42 Dizziness and giddiness | CPT/HCPCS: 93880 ==

== ENCOUNTER 2025-02-23 06:23 | Day surgery (SDC) | payer OTHER, SELFPAY | END 2025-02-23 09:25 | disposition home or self-care (01) | LOC: GI 06:23 | PROVIDERS: ATTENDING PHYSICIAN Internal Medicine | DX: Z12.11 Encounter for screening for malignant neoplasm of colon (principal); K62.89 Other specified diseases of anus and rectum; Z86.0101 Personal history of adenomatous and serrated colon polyps | CPT/HCPCS: G0105 ==